=== PATIENT | male | born 1955 ===

== ENCOUNTER 2017-12-17 20:22 | Emergency (ER) | payer OTHER ==
[2017-12-17 20:24] VITALS: BMI 29.8
--- NOTE | 2017-12-17 22:59 | ED PDOC ---
HPI: Psych/Substance Abuse Time Seen by Provider: 12/17/17 20:36 Chief Complaint (Nursing): Trauma Chief Complaint (Provider): Trauma History Per: Patient History/Exam Limitations: intoxication Current Symptoms Are (Timing): Still Present Modifying Factor(s): Alcohol Additional Complaint(s): 62 year old male presents to the ED after being found on the floor intoxicated with signs of head injury. He is intoxicated and unable to give history of mechanism of fall. Offers no medical complaints. PMD: none provided Past Medical History Reviewed: Historical Data, Nursing Documentation, Vital Signs Vital Signs: Last Vital Signs Temp 97.8 F 12/17/17 20:24 Pulse 68 12/17/17 20:24 Resp 20 12/17/17 20:24 BP 172/95 H 12/17/17 20:24 Pulse Ox 98 12/17/17 20:24 - Medical History PMH: No Chronic Diseases - Surgical History Surgical History: No Surg Hx - Family History Family History: States: Unknown Family Hx - Social History Current smoker - smoking cessation education provided: No - Immunization History Hx Tetanus Toxoid Vaccination: No - Home Medications Home Medications: Ambulatory Orders Medication Instructions Recorded Cyclobenzaprine [Flexeril] 10 mg PO HS 08/11/15 Naproxen [Naprosyn Tab] 375 mg PO BID PRN #16 tab 08/11/15 - Allergies Allergies/Adverse Reactions: Allergies Allergy/AdvReac Type Severity Reaction Status Date / Time No Known Allergies Allergy Verified 08/11/15 00:41 Review of Systems ROS Statement: Except As Marked, All Systems Reviewed And Found Negative Physical Exam - Reviewed Nursing Documentation Reviewed: Yes Vital Signs Reviewed: Yes - Physical Exam Appears: Positive for: No Acute Distress (intoxicated, disheveled and malodorous ) Head Exam: Positive for: NORMOCEPHALIC (small abrasion posterior midline superior scalp with hematome) Skin: Positive for: Warm, Dry Eye Exam: Positive for: EOMI, PERRL, Conjunctival injection ENT: Positive for: Pharynx Is (clear) Neck: Positive for: Painless ROM, Supple Cardiovascular/Chest: Positive for: Regular Rate, Rhythm. Negative for: Murmur Respiratory: Positive for: Normal Breath Sounds. Negative for: Respiratory Distress Gastrointestinal/Abdominal: Positive for: Soft. Negative for: Tenderness Back: Positive for: Normal Inspection. Negative for: Decreased ROM Extremity: Positive for: Normal ROM. Negative for: Deformity Lymphatic: Negative for: Adenopathy Neurologic/Psych: Positive for: Alert, Oriented, Other (slurred speech and poor concentration). Negative for: Motor/Sensory Deficits - ECG O2 Sat by Pulse Oximetry: 98 (RA) Pulse Ox Interpretation: Normal Medical Decision Making Medical Decision Makin:37 Impression: intoxication and head injury Initial Plan: --head Ct --Alcohol EXAM: CT Head Without Intravenous Contrast EXAM DATE/TIME: 12/17/2017 8:37 PM CLINICAL HISTORY: 62 years old, male; Injury or trauma; Fall; Initial encounter; Blunt trauma ( contusions or hematomas); Consciousness not specified; Additional info: Head injury intox TECHNIQUE: Axial computed tomography images of the head/brain without intravenous contrast. All CT scans at this facility use at least one of these dose optimization techniques: automated exposure control; mA and/or kV adjustment per patient size (includes targeted exams where dose is matched to clinical indication); or iterative reconstruction. COMPARISON: No relevant prior studies available. FINDINGS: Brain: Mild atrophy. No intracranial hemorrhage. No mass. Few scattered foci of decreased attenuation within periventricular/subcortical white matter. No edema. Ventricles: No hydrocephalus. Bones/joints: No acute fracture. Chronic deformity medial wall of LEFT orbit. Sinuses: Scattered minimal mucosal thickening. Mastoid air cells: No mastoid effusion. Orbits: Unremarkable as visualized. Soft tissues: Parietal soft tissue swelling. Vasculature: Mild atherosclerotic disease of intracranial arteries. IMPRESSION: 1. No intracranial hemorrhage. 2. Probable chronic microvascular ischemic changes. Thank you for allowing us to participate in the care of your patient. Dictated and Authenticated by: Derrek Hollingsworth MD 12/17/2017 11:03 PM Eastern Time ([place] & [place]) ---- Scribe Attestation: Documented by Kelly Marrero, acting as a scribe for Patti Strauss MD Provider Scribe Attestation: All medical record entries made by the Scribe were at my direction and personally dictated by me. I have reviewed the chart and agree that the record accurately reflects my personal performance of the history, physical exam, medical decision making, and the department course for this patient. I have also personally directed, reviewed, and agree with the discharge instructions and disposition. Disposition - Clinical Impression Clinical Impression: Alcohol intoxication - Disposition Disposition: Transfer of Care Disposition Time: 00:20 Condition: STABLE Instructions: Alcohol Abuse and Alcoholism (DC) Forms: [employer] (Bermudian) Print Language: TAMAZIGHT Patient Signed Over To: Chucho Mays Handoff Comments: Pending sobriety
--- NOTE | 2017-12-18 00:31 | ED PDOC ---
- ECG O2 Sat by Pulse Oximetry: 98 (RA) Medical Decision Making Medical Decision Making: Time: 00:26 --Patient care endorsed to Provider from Dr. Strauss pending clinical sobriety and reevaluation. 6AM Patient is AAO x3 and has steady gait, fluent speech DX Alcohol intoxication Scribe Attestation: Documented by Kyle Kellogg, acting as a scribe for Chucho Mays MD. Provider Scribe Attestation: All medical record entries made by the Scribe were at my direction and personally dictated by me. I have reviewed the chart and agree that the record accurately reflects my personal performance of the history, physical exam, medical decision making, and the department course for this patient. I have also personally directed, reviewed, and agree with the discharge instructions and disposition. Disposition - Clinical Impression Clinical Impression: Alcohol intoxication - POA Present On Arrival: None - Disposition Referrals: Dave Rondon MD [Primary Care Provider] - Disposition: Routine/Home Disposition Time: 06:00 Condition: STABLE Instructions: Alcohol Abuse and Alcoholism (DC) Forms: [employer] (Sammarinese) Print Language: ITALIAN
[2017-12-18 06:10] VITALS: BP 132/80; PULSE 62; RESP 13; TEMP 98.6
--- NOTE | 2017-12-18 08:14 | CT ---
Date of service: 12/17/2017 PROCEDURE: CT HEAD WITHOUT CONTRAST. HISTORY: head injury intox COMPARISON: None available. TECHNIQUE: Axial computed tomography images were obtained through the head/brain without intravenous contrast. Radiation dose: Total exam DLP = 976 mGy-cm. This CT exam was performed using one or more of the following dose reduction techniques: Automated exposure control, adjustment of the mA and/or kV according to patient size, and/or use of iterative reconstruction technique. FINDINGS: HEMORRHAGE: No intracranial hemorrhage. BRAIN: No mass effect or edema. There is mild cerebral atrophy. Few periventricular and subcortical hypodensities right side greater than left compatible with probable chronic microvascular ischemic changes are noted. . VENTRICLES: Unremarkable. No hydrocephalus. CALVARIUM: Unremarkable. PARANASAL SINUSES: No air-fluid levels noted. Minimal ethmoidal sinus mucosal thickening noted MASTOID AIR CELLS: Unremarkable as visualized. No inflammatory changes. OTHER FINDINGS: None. IMPRESSION: No intracranial hemorrhage or mass effect. There is mild cerebral atrophy. Few periventricular and subcortical hypodensities right side greater than left compatible with probable chronic microvascular ischemic changes are noted. . Minimal ethmoidal sinus inflammatory change Concordant results (preliminary interpretation) provided by [facility].
[2017-12-18 15:21] VITALS: O2SAT 98
== END 2017-12-18 06:03 | disposition home or self-care (01) ==
LOC: H.ER 20:22
DX: F10.129 Alcohol abuse with intoxication, unspecified (principal); S09.90XA Unspecified injury of head, initial encounter; W19.XXXA Unspecified fall, initial encounter; Y92.89 Other specified places as the place of occurrence of the external cause